=== PATIENT | male | born 1970 | race Caucasian/White ===

== ENCOUNTER 2024-04-28 01:36 | Emergency (ER) | payer OTHER ==
[~2024-04-28] VITALS: Ht 182.9 cm; Wt 86.4 kg
[2024-04-28 01:43] VITALS: TEMP 98.2
--- NOTE | 2024-04-28 01:53 | NUR ---
[facility] FREQUENT ASSESSMENT COMPLETED AND PATIENT SCORES "NO RISK IDENTIFIED". PATIENT DENIES ALL SI/HI/OTHER PYSCH COMPLAINTS.
[2024-04-28] MEDS: ipratropium/albuterol 3ml nebule NEB ONE (02:10)
[2024-04-28 02:11] VITALS: PULSE 113; RESP 16; O2SAT 93
[2024-04-28 02:17] VITALS: PULSE 116; RESP 18; O2SAT 96
--- NOTE | 2024-04-28 03:27 | NUR ---
PATIENT ONLY REQUEST IS TO FIND TRANSPORTATION BACK TO [place], [place] WHERE HE LIVES. PER NADEGE [place] NP, PATIENT WILL CONSULT WITH [employer] IN AM IN ORDER TO POTENTIALLY COORDINATE TRANSPORT BACK HOME.
[2024-04-28 05:35] VITALS: BP 128/81; PULSE 81; RESP 18; O2SAT 98
--- NOTE | 2024-04-28 06:00 | NUR ---
PATIENT DISCHARGED PER MD WITH TRANSPORTATION RESOURCES, [facility] CALLED TO TRANSPORT [place] WHERE HE WILL COORDINATE TRANSPORTATION BACK TO [place].
== END 2024-04-28 06:03 | disposition home or self-care (01) ==
LOC: ER 01:38
DX: Z00.00 Encounter for general adult medical examination without abnormal findings (principal); R06.2 Wheezing
CPT/HCPCS: 94640; 94760; 99284; 99285